=== PATIENT | female | born 1960 | race Caucasian/White ===

== ENCOUNTER 2023-10-29 00:30 | Emergency (ER) | payer MEDICARE, OTHER ==
[~2023-10-29] VITALS: Ht 162.6 cm; Wt 72.6 kg
[~2023-10-29 00:30] MED LIST: GABA600T PO; LIDP; MORPHINE PUMP; VENL37.578
[2023-10-29 00:35] VITALS: BP_SYST 160; PULSE 80; RESP 17; TEMP 98; O2SAT 97
[2023-10-29] MEDS ORDERED: NAPR-1172 PO (02:02)
== END 2023-10-29 02:06 | disposition home or self-care (01) ==
LOC: SED 00:30
DX: S43.492A Other sprain of left shoulder joint, initial encounter (principal); M25.532 Pain in left wrist; J45.909 Unspecified asthma, uncomplicated; K21.9 Gastro-esophageal reflux disease without esophagitis; I10 Essential (primary) hypertension; Z88.2 Allergy status to sulfonamides; Z91.041 Radiographic dye allergy status; Z79.899 Other long term (current) drug therapy; W01.0XXA Fall on same level from slipping, tripping and stumbling without subsequent striking against object, initial encounter; Y93.89 Activity, other specified; Y92.89 Other specified places as the place of occurrence of the external cause; Y99.8 Other external cause status
CPT/HCPCS: 73030; 99284